=== PATIENT | male | born 1995 | race African-American/Black ===

== ENCOUNTER 2017-07-15 13:01 | Emergency (ER) | payer BC, MEDICAID ==
[~2017-07-15] VITALS: Ht 177.8 cm; Wt 91.0 kg
[2017-07-15] MEDS ORDERED: IBUPROFEN 600MG TABLET PO ONE (20:00)
[2017-07-15 21:20] VITALS: BP 149/87
== END 2017-07-15 21:45 | disposition home or self-care (01) ==
LOC: ER 13:01
DX: S52.501A Unspecified fracture of the lower end of right radius, initial encounter for closed fracture (principal); S52.601A Unspecified fracture of lower end of right ulna, initial encounter for closed fracture; W01.0XXA Fall on same level from slipping, tripping and stumbling without subsequent striking against object, initial encounter; Y93.89 Activity, other specified; Y92.9 Unspecified place or not applicable
CPT/HCPCS: 29125; 73080; 73090; 73110; 73130; 99284

== ENCOUNTER 2021-01-27 18:05 | Emergency (ER) | payer MEDICAID ==
[~2021-01-27] VITALS: Ht 177.8 cm; Wt 85.0 kg
[2021-01-27] MEDS ORDERED: SODIUM CHLORIDE 0.9% 1,000 ML IV ONE ×2 (18:15→20:15)
[2021-01-27] MEDS ORDERED: TETANUS, DIPHTHERIA, PERTUSSIS VAC/PF 0.5ML (>10YR OLD) IM ONE (18:15)
[2021-01-27 18:29] LABS: BASOPHILS % 0.6 % (0.0-2.0); EOSINOPHILS % 8.7 % (0.0-5.0); HEMATOCRIT. 52.4 % (42.0-52.0); HEMOGLOBIN. 16.5 g/dL (14.0-18.0); LYMPHOCYTES % 60.3 % (20.0-50.0); MEAN CORPUSCULAR HEMOGLOBIN 27.9 pg (28.0-32.0); MEAN CORPUSCULAR VOLUME 88.5 fL (80.0-94.0); MEAN PLATELET VOLUME 8.3 fl (7.4-10.4); MONOCYTES % 7.9 % (2.0-8.0); NEUTROPHILS % 22.5 % (40.0-76.0); PLATELET 296 x1000/uL (130-400); RED BLOOD CELL COUNT 5.92 mill/uL (4.7-6.1); RED CELL DISTRIBUTION WIDTH 13.5 % (11.6-14.6)
[2021-01-27 18:36] LABS: CHLORIDE 106 mEq/L (98-107)
[2021-01-27 18:39] LABS: INR 1.1; PROTHROMBIN TIME 12.1 sec (9.6-11.0)
[2021-01-27 18:43] LABS: ETHANOL BLOOD < 10 mg/dL
[2021-01-27] MEDS ORDERED: FENTANYL CITRATE/PF 50MCG/ML 2ML VIAL IV ONE (19:00)
[2021-01-27] MEDS ORDERED: ONDANSETRON HCL 4MG/2ML INJ IV ONE (19:00)
[2021-01-27] MEDS ORDERED: MORPHINE SULFATE 4 MG/ML CPJ (NOT FOR IM USE) IV ONE (20:45)
[2021-01-27] MEDS ORDERED: POTASSIUM CHLORIDE 20MEQ TABLET SR PO ONE (22:45)
[2021-01-27] MEDS ORDERED: ACETAMINOPHEN 325MG TABLET PO ONE (23:00)
[2021-01-28] VITALS: BP 132/75
== END 2021-01-28 | disposition home or self-care (01) ==
LOC: ER 18:05
DX: S51.812A Laceration without foreign body of left forearm, initial encounter (principal); Y08.89XA Assault by other specified means, initial encounter; Y93.89 Activity, other specified; Y92.89 Other specified places as the place of occurrence of the external cause; Y99.8 Other external cause status; R41.82 Altered mental status, unspecified
CPT/HCPCS: 36415; 70450; 71045; 74176; 80053; 80307; 80320; 80329; 82140; 82962; 83605; 83690; 83880; 84443; 84484; 85025; 85610; 86850; 86900; 86901; 90471; 90715; 93005; 96361; 96374; 96375; 99285; J2270; J2405; J3010; J7030; G0480

== ENCOUNTER 2024-09-13 19:05 | Emergency (ER) | payer MEDICAID, OTHER ==
[2024-09-13 19:08] VITALS: O2SAT 98
[2024-09-13 21:13] VITALS: PULSE 77
[2024-09-13] MEDS: KETOROLAC 15MG/ML VIAL IM ONE (21:13)
[2024-09-13 21:14] VITALS: BP 136/85; RESP 16
[2024-09-13] MEDS: LIDOCAINE 5% PATCH TOP SCH (21:14)
[2024-09-13] MEDS ORDERED: LIDO-53 TP (21:56)
[2024-09-13] MEDS ORDERED: NAPR-1176 MT (21:56)
[2024-09-13] MEDS ORDERED: CYCL5TAB3 MT (21:58)
== END 2024-09-13 22:05 | disposition home or self-care (01) ==
LOC: ER 19:20
DX: M54.2 Cervicalgia (principal); M54.6 Pain in thoracic spine; F12.90 Cannabis use, unspecified, uncomplicated; Z79.899 Other long term (current) drug therapy; Z79.1 Long term (current) use of non-steroidal anti-inflammatories (NSAID); V89.2XXA Person injured in unspecified motor-vehicle accident, traffic, initial encounter; Y93.89 Activity, other specified; Y92.89 Other specified places as the place of occurrence of the external cause; Y99.8 Other external cause status
CPT/HCPCS: 99283; 96372; J1885